=== PATIENT | male | born 1940 | race Caucasian/White ===

== ENCOUNTER → 2017-04-13 | Outpatient (CLI) | payer MEDICARE, OTHER ==
[~2017-04-13] MED LIST: AMIODARONE 200200 MG PO; ASPIRIN 81MG TA81 MG PO; BENTYL10 MG PO; CELEBREX200 MG PO; CIALIS20 MG PO; COUMADIN3 MG PO; EFFIENT10 M1 PO; FOLIC ACID 1MG T1 MG PO; HYTRIN5 MG PO; LEVOCETIRIZINE D5 MG PO; LIPITOR40 MG PO; LOVASTATIN40 MG PO; NEXIUM40 MG PO; PANTOPRAZOLE SO40 MG PO; SYNTHROID 0.0.125 MG PO; TAMBOCOR PO; TERAZOSIN5 MG PO; XARELTO20 MG PO; ZOFRAN ODT4 MG PO; [UNRECOGNIZED DRUG - OTHER] PO
--- NOTE | 2017-04-13 11:39 | RADIOLOGY REPORT PS360 ---
CHEST(2 VIEWS-NOT PORTABLE) HISTORY: COUGH DUE TO BRONCHOSPASM ORDERING PHYSICIAN: Abel Ortega MD PATIENT AGE: 77 years COMPARISON: 11/17/2011 FINDINGS: The cardiomediastinal silhouette and pulmonary vascularity are within normal limits. Mild hyperinflation with attenuation of the peripheral pulmonary vessels consistent with obstructive chronic bronchitis. No lobar consolidation or collapse.. No acute bony abnormalities. IMPRESSION: The findings are consistent with obstructive chronic bronchitis/small airway disease. No lobar consolidation
== END ==
LOC: RAD 09:39
DX: J98.01 Acute bronchospasm (principal)

== ENCOUNTER → 2017-11-09 | Outpatient (CLI) | payer MEDICARE, OTHER ==
[2017-11-09 11:25] LABS: BILIRUBIN, INDIRECT 0.84 mg/dL (0-0.9)
--- NOTE | 2017-11-10 17:32 | RADIOLOGY REPORT PS360 ---
PROCEDURE: 2-D M-mode and color Doppler study INDICATIONS FOR THE TEST: Chest pain COPD Heart Murmur+ Tobacco Smoking Palpitations Fatigue Syncope Edema Hypertension+Diabetes Mellitus Rheumatic Fever SOB ROSAS Obesity Hyperlipidemia+ Family History HD+ Additional History cardiomyopathy, hx of AFIB, 1 stent, CAD PATIENT INFORMATION HEIGHT: 69 WEIGHT: 210 GENDER: Male B/P: 169/93 2-D/M-MODE INTERPRETATION: 2-D MEASUREMENTS OBSERVED VALUES IN CMS Right Ventricular Dimension (RVDd) 2.5 Interventricular Septum (Thickness)(IVsd) 1.3 Left Ventricular Internal Dimensions(LVIDd) 4.5 Left Ventricular Posterior Wall (Thickness)(LVPWd) 1.3 Aortic Root 3.6 Aortic Cusp Separation 2.5 Left Atrial Dimensions (LAD) 3.6 2D 1. This is the dictation on patient name Timothy Acevedocutt. 2. Left atrium is mildly enlarged, left ventricle is normal size, there is mild concentric left ventricular hypertrophy, visually estimated ejection fraction 55% with no obvious regional wall motion abnormality. 3. The right atrium and right ventricle are normal size and contractility. 4. The aortic valve is minimally thickened and fibrosed. 5. The mitral and tricuspid valve leaflets are minimally thickened. 6. The pulmonic valve is poorly visualized. 7. There is no significant pericardial effusion noted. DOPPLER INTERROGATION: Doppler interrogation of the aortic, mitral and tricuspid valvular presence of mild mitral and tricuspid regurgitation, tricuspid regurgitant jet velocity insufficient for calculation of the right ventricular systolic pressure, grade 1 diastolic dysfunction seen with tissue Doppler evidence of raised left atrial pressure. CONCLUSION: 1. Mildly enlarged left atrium, normal left ventricular size, mild concentric left ventricular hypertrophy, visually estimated ejection fraction 55% with no obvious regional wall motion abnormality, grade 1 diastolic dysfunction seen with tissue Doppler evidence of raised left atrial pressure. 2. Mild mitral and tricuspid regurgitation. 3. No significant pericardial effusion noted.
== END ==
LOC: RT 09:19
PROVIDERS: Internal Medicine
DX: I25.10 Atherosclerotic heart disease of native coronary artery without angina pectoris (principal); I10 Essential (primary) hypertension; E78.5 Hyperlipidemia, unspecified; R01.1 Cardiac murmur, unspecified